=== PATIENT | female | born 1975 | race African-American/Black ===

== ENCOUNTER 2021-02-07 17:58 | Emergency (ER) | payer OTHER ==
[2021-02-07 18:39] VITALS: BP 148/94; PULSE 97; TEMP 97.9; BMI 39.9
[2021-02-07] MEDS ORDERED: INSULIN (LEVEMIR) 100 UNITS/ML UNITS SQ ONE ×2 (21:20→21:28)
[2021-02-07 21:43] LABS: EPI CELLS 36 /uL (0-25.1); HYALINE CASTS 1 /uL (0-3.1); PH,URINE 6.5 (5.0-8.0); URINE APPEARANCE CLEAR; URINE BACTERIA 834 /uL (0-1359); URINE BILIRUBIN NEGATIVE (NEGATIVE); URINE COLOR YELLOW; URINE GLUCOSE (UA) 3+ (NEGATIVE); URINE KETONE TRACE (NEGATIVE); URINE LEUK ESTERASE 1+ (NEGATIVE); URINE NITRITE NEGATIVE (NEGATIVE); URINE PROTEIN NEGATIVE (NEGATIVE); URINE RBC 5 /uL (0-23.9); URINE UROBILINOGEN 0.2 mg/dL (0.2-1.0); URINE WBC 76 /uL (0-25.8)
== END 2021-02-07 22:57 | disposition home or self-care (01) ==
LOC: JER 17:58
DX: R73.9 Hyperglycemia, unspecified (principal); B37.9 Candidiasis, unspecified; Z76.0 Encounter for issue of repeat prescription
CPT/HCPCS: 81003; 82962; 87086; 99283-25